=== PATIENT | female | born 1990 | race Asian ===

== ENCOUNTER → 2018-05-29 | Outpatient (CLI) | payer OTHER ==
--- NOTE | 2018-05-29 14:22 | DIAGNOSTIC IMAGING REPORT ---
ULTRASOUND GUIDED FINE NEEDLE ASPIRATION OF RIGHT LOBE THYROID NODULE CLINICAL HISTORY: Right lobe thyroid nodule. COMPARISON STUDY: Thyroid ultrasound May 22, 2018. PROCEDURE: Sonography of the thyroid gland demonstrated the mixed cystic and solid right lobe thyroid nodule that measures 2.6 cm. The solid component was targeted. The procedure, risks and benefits were discussed with the patient and informed written consent was obtained. The procedure was performed by Dr. Long following a timeout. Skin was prepped and draped in sterile fashion and local anesthesia was achieved with 1% lidocaine. Under direct ultrasound guidance, a 25-gauge fine-needle aspiration was performed of the solid component. Sample was deemed preliminarily adequate by pathology. The patient tolerated the procedure well and no complications were evident. IMPRESSION: Successful ultrasound guided fine needle aspiration of the right lobe thyroid nodule. Electronically signed by: Sloan Long M.D. 05/29/2018 2:21 PM Dictated Date/Time: 05/29/2018 2:17 PM
== END | disposition home or self-care (01) ==
LOC: C.ULTR 12:51
PROVIDERS: ATTEND Family Medicine
DX: E04.1 Nontoxic single thyroid nodule (principal)